=== PATIENT | male | born 1985 | race Caucasian/White ===

== ENCOUNTER 2016-02-09 20:00 | Emergency (ER) | payer SELFPAY ==
[~2016-02-09] VITALS: Ht 182.9 cm; Wt 105.2 kg
[~2016-02-09 20:00] MED LIST: IBUP800T23 PO
[2016-02-09 20:09] VITALS: BP 143/82; PULSE 101; RESP 18; TEMP 98.9; O2SAT 99
--- NOTE | 2016-02-09 22:35 | PD ---
HPI Chief Complaint: Abdominal Pain Time Seen by Provider: 21:40 Travel History International Travel<30 days: No Contact w/Intl Traveler<30days: No Traveled to known affect area: No History of Present Illness HPI The patient is a 30-year-old male that was here on the with right lower quadrant pain. At that time his CT scan was normal but his white count was elevated 17,000. He was offered admission but wanted to try it at home with Motrin. He has been taking Motrin but his pain got worse and he developed some slight amount of blood in the stool. The pain is still in the right lower quadrant. He denies any fever, nausea or vomiting. He denies any dysuria, frequency, urgency and has not noticed any blood in his urine. He does have a history of kidney stones. He still has his gallbladder and appendix. PFSH Past Medical History ADD: Yes Asthma: Yes ( A CHILD) Autoimmune Disease: No Blood Disorders: No Bipolar Disorder: Yes Cardiovascular Problems: Yes (HEART MURMUR) Chemotherapy: No Diabetes: No Diminished Hearing: No Endocrine: No Genitourinary: No Immune Disorder: No Musculoskeletal: No Neurologic: No Psychiatric: Yes Reproductive: No Respiratory: Yes (ASTHMA) Integumentary: Yes (PT STATES HE HAS HX OF STAPH POST SPIDER BITE IN R ELBOW) Immunizations Current: No Radiation Therapy: No Sickle Cell Disease: No Influenza Vaccination: No PNEUMOCCOCAL Vaccine (Year): 1 Past Surgical History Abdominal Surgery: Yes (UPPER AND LOWER ENDOSCOPY) AICD: No Arteriovenous Shunt: No Cardiac Surgery: No Ear Surgery: No Endocrine Surgery: No Eye Surgery: No Genitourinary Surgery: No Gynecologic Surgery: No Insulin Pump: No Joint Replacement: No Neurologic Surgery: No Oral Surgery: No Pacemaker: No Thoracic Surgery: No Other Surgery: Yes (MRSA INFECTION LT ELBOW, L MIDDLE FINGER) Social History Alcohol Use: Yes (RARE) Tobacco Use: No (VAPOR SINCE AUGUST 2015) Substance Use: Yes (Marijuana occ.) Allergies-Medications (Allergen,Severity, Reaction): Coded Allergies: Penicillin (Verified Allergy, Severe, Anaphylaxis, 02/09/16) *MDRO Multi-Drug Resistant Organism (Verified Adverse Reaction, Unknown, ) MRSA (wound) - 03/2007 & 07/2007 *MRSA PCR screen negative 03/29/15 & 03/31/15* Per Infection Control, pt does not require isolation fo MRSA prior to 03/31/2015. Reported Meds & Prescriptions Reported Meds & Active Scripts Active No Active Prescriptions or Reported Medications Review of Systems Except as stated in HPI: all other systems reviewed are Neg Physical Exam Narrative GENERAL: The patient is alert, oriented 3 in moderate amount of distress with his right lower quadrant pain. His vital signs show heart rate of 101 and blood pressure 143/82 but are otherwise normal. SKIN: Warm and dry. HEAD: Atraumatic. Normocephalic. EYES: Pupils equal and round. No scleral icterus. No injection or drainage. ENT: No nasal bleeding or discharge. Mucous membranes pink and moist. NECK: Trachea midline. No JVD. CARDIOVASCULAR: Regular rate and rhythm. No murmur appreciated. RESPIRATORY: No accessory muscle use. Clear to auscultation. Breath sounds equal bilaterally. GASTROINTESTINAL: Abdomen soft, with tenderness to direct palpation in the right lower quadrant, nondistended. Hepatic and splenic margins not palpable. No guarding or rebound is present. MUSCULOSKELETAL: No obvious deformities. No clubbing. No cyanosis. No edema. NEUROLOGICAL: Awake and alert. No obvious cranial nerve deficits. Motor grossly within normal limits. Normal speech. PSYCHIATRIC: Appropriate mood and affect; insight and judgment normal. RECTAL EXAM: No masses or tenderness, stool is brown but guaiac positive. Data Data Last Documented VS Vital Signs Date Time Temp Pulse Resp B/P Pulse Ox O2 Delivery O2 Flow Rate FiO2 02/09/16 23:12 18 02/09/16 22:50 97 Room Air 02/09/16 22:45 69 134/74 02/09/16 20:09 98.9 Orders Complete Blood Count With Diff (02/09/16 22:35) Comprehensive Metabolic Panel (02/09/16 22:35) Lipase (02/09/16 22:35) Urinalysis - C+S If Indicated (02/09/16 22:35) Ct Abd/Pel W Iv Contrast(Rout) (02/09/16 22:35) Iv Access Insert/Monitor (02/09/16 22:35) Ecg Monitoring (02/09/16 22:35) Oximetry (02/09/16 22:35) Sodium Chloride 0.9% Flush (Ns Flush) (02/09/16 22:45) Ondansetron Inj (Zofran Inj) (02/09/16 22:45) Hydromorphone Pf Inj (Dilaudid Pf Inj) (02/09/16 22:45) Sodium Chlor 0.9% 1000 Ml Inj (Ns 1000 M (02/09/16 22:45) Iohexol 300 Inj (Rad Ct) (Omnipaque 300 (02/09/16 23:41) Ondansetron 4 Mg Vial (Zofran 4 Mg Vial) (02/10/16 00:00) Hydromorphone Pf 1 Mg Vial (Dilaudid Pf (02/10/16 00:00) Labs Laboratory Tests Test 02/09/16 22:45 White Blood Count 6.7 TH/MM3 Red Blood Count 5.22 MIL/MM3 Hemoglobin 15.0 GM/DL Hematocrit 44.2 % Mean Corpuscular Volume 84.6 FL Mean Corpuscular Hemoglobin 28.8 PG Mean Corpuscular Hemoglobin 34.0 % Concent Red Cell Distribution Width 12.1 % Platelet Count 217 TH/MM3 Mean Platelet Volume 8.5 FL Neutrophils (%) (Auto) 47.4 % Lymphocytes (%) (Auto) 36.6 % Monocytes (%) (Auto) 11.5 % Eosinophils (%) (Auto) 3.9 % Basophils (%) (Auto) 0.6 % Neutrophils # (Auto) 3.2 TH/MM3 Lymphocytes # (Auto) 2.4 TH/MM3 Monocytes # (Auto) 0.8 TH/MM3 Eosinophils # (Auto) 0.3 TH/MM3 Basophils # (Auto) 0.0 TH/MM3 CBC Comment DIFF FINAL Differential Comment Urine Color YELLOW Urine Turbidity CLEAR Urine pH 6.0 Urine Specific [place] 1.030 Urine Protein NEG mg/dL Urine Glucose (UA) NEG mg/dL Urine Ketones NEG mg/dL Urine Occult Blood TRACE Urine Nitrite NEG Urine Bilirubin NEG Urine Leukocyte Esterase NEG Urine RBC 0-3 /hpf Urine WBC 0-2 /hpf Urine Squamous Epithelial 0-5 /hpf Cells Urine Bacteria NONE /hpf Microscopic Urinalysis Comment CULT NOT INDICATED Sodium Level 141 MEQ/L Potassium Level 3.5 MEQ/L Chloride Level 105 MEQ/L Carbon Dioxide Level 28.1 MEQ/L Anion Gap 8 MEQ/L Blood Urea Nitrogen 15 MG/DL Creatinine 0.78 MG/DL Estimat Glomerular Filtration 119 ML/MIN Rate Random Glucose 88 MG/DL Calcium Level 8.8 MG/DL Total Bilirubin 0.4 MG/DL Aspartate Amino Transf 45 U/L (AST/SGOT) Alanine Aminotransferase 92 U/L (ALT/SGPT) Alkaline Phosphatase 103 U/L Total Protein 8.0 GM/DL Albumin 3.9 GM/DL Lipase 112 U/L MDM Medical Decision Making Medical Screen Exam Complete: Yes Emergency Medical Condition: Yes Medical Record Reviewed: Yes Interpretation(s) The urine shows trace occult blood and specific gravity of 1.030 but is otherwise normal and culture is not indicated. The CBC is normal. The complete metabolic profile is normal and the lipase is normal. The chest x-ray is normal. Differential Diagnosis Viral upper respiratory infection, pneumonia, bronchitis, dehydration, electrolyte disorder, hypo-/hyperglycemia, sepsis Narrative Course The patient appears to have a viral upper respiratory infection. He should drink increased liquids and take Motrin and Tylenol and follow-up with a primary care physician next week. If worse, he can return to the emergency department. Diagnosis Primary Impression: Viral upper respiratory infection Additional Instructions: As we discussed, this is a virus and antibiotics do not work for a virus. If you have sudden increase in fever, shortness of breath or chest pain you can return for reevaluation. Otherwise follow-up with a primary care physician next week. Rest, Tylenol, Motrin and increase liquids are the treatment. Med/Other Pt SpecificInfo: No Change to Meds Scripts No Active Prescriptions or Reported Meds Disposition: 01 DISCHARGE HOME Condition: Stable Brandon Nunez MD Feb 09, 2016 22:35
[2016-02-09] MEDS: SODIUM CHLOR 0.9% 1000 ML INJ 1,000 ML IV SCH ×2 (22:41→23:47)
[2016-02-09 22:45] VITALS: BP 134/74; PULSE 69; RESP 18; O2SAT 98
[2016-02-09] MEDS ORDERED: ONDANSETRON HCL 4 MG/2 ML VIAL IV ONE (22:45)
[2016-02-09] MEDS ORDERED: SODIUM CHLORIDE 0.9% FLUSH 5 ML FLUSH IVF PRN (22:45)
[2016-02-09] MEDS ORDERED: HYDROmorphone HCL PF 1 MG/ML VIAL IVP ONE (22:45)
[2016-02-09 22:50] VITALS: O2SAT 97
[2016-02-09 22:55] LABS: BLOOD, URINE TRACE (NEG); GLUCOSE,URINE NEG (NEG); KETONE, URINE NEG (NEG); NITRITE,URINE NEG (NEG)
[2016-02-09 22:57] LABS: AUTOMATED NEUTROPHIL # 3.2 TH/MM3 (1.8-7.7); BASOPHIL % 0.6 % (0.0-2.0); EOSINOPHIL # 0.3 TH/MM3 (0-0.4); EOSINOPHIL % 3.9 % (0.0-4.0); HEMATOCRIT 44.2 % (39.0-51.0); HEMO FLAGS DIFF FINAL; LYMPH % 36.6 % (9.0-44.0); LYMPHOCYTE # 2.4 TH/MM3 (1.0-4.8); MEAN CELL VOLUME 84.6 FL (80.0-100.0); MEAN CORPUSCULAR HEMOGLOBIN 28.8 PG (27.0-34.0); MONO % 11.5 % (0.0-8.0); NEUT % 47.4 % (16.0-70.0); PLATELET COUNT 217 TH/MM3 (150-450); RED BLOOD COUNT 5.22 MIL/MM3 (4.50-5.90); RED CELL DISTRIBUTION WIDTH 12.1 % (11.6-17.2); WHITE BLOOD COUNT 6.7 TH/MM3 (4.0-11.0)
[2016-02-09 23:03] LABS: CHLORIDE 105 MEQ/L (98-107); COMMENT (UR) CULT NOT INDICATED; CULTURE IF INDICATED CULT NOT INDICATED; POTASSIUM 3.5 MEQ/L (3.5-5.1); RBC, URINE 0-3 /hpf (0-3); SODIUM (NA) 141 MEQ/L (136-145); SQUAMOUS EPITHELIAL CELL URINE 0-5 /hpf (0-5); URINE COLOR YELLOW (YELLW/STRAW); WBC, URINE 0-2 /hpf (0-5)
[2016-02-09 23:07] LABS: ANION GAP 8 MEQ/L (5-15); BICARBONATE 28.1 MEQ/L (21.0-32.0); BLOOD UREA NITROGEN 15 MG/DL (7-18)
[2016-02-09 23:10] LABS: ALT (GPT) 92 U/L (12-78); AST (GOT) 45 U/L (15-37); GLOMERULAR FILTRATION RATE 119 ML/MIN (>89)
[2016-02-09 23:11] LABS: TOTAL BILIRUBIN ADULT 0.4 MG/DL (0.2-1.0)
[2016-02-09 23:13] LABS: ALKALINE PHOSPHATASE 103 U/L (45-117)
[2016-02-09] MEDS ORDERED: IOHEXOL 300 MG/ML 100 ML BTL (for Rad CT) IV ONE (23:41)
[2016-02-09 23:50] VITALS: BP 126/67; PULSE 69; RESP 17; O2SAT 97
--- NOTE | 2016-02-09 23:58 | RADHPO ---
EXAM DATE/TIME: 02/09/2016 23:37 [facility] COMPARISON: CT ABDOMEN & PELVIS W CONTRAST, February 03, 2016, 1:16. INDICATIONS : Right lower quadrant pain for a week now with blood in stool. IV CONTRAST: 100 cc Omnipaque 300 (iohexol) IV ORAL CONTRAST: No oral contrast ingested. RADIATION DOSE: 16.91 CTDIvol (mGy) MEDICAL HISTORY : Ulcerative colitis. SURGICAL HISTORY : None. ENCOUNTER: Initial ACUITY: 1 week PAIN SCALE: 8/10 LOCATION: Right lower quadrant abdomen TECHNIQUE: Volumetric scanning of the abdomen and pelvis was performed. Using automated exposure control and ad justment of the mA and/or kV according to patient size, radiation dose was kept as low as reasonably achievable to obtain optimal diagnostic quality images. FINDINGS: LOWER LUNGS: The visualized lower lungs are clear. LIVER: The liver is diffusely low in attenuation without lesion. There is no dilation of the biliary tree. No calcified gallstones. SPLEEN: Normal size without lesion. PANCREAS: Within normal limits. KIDNEYS: Normal in size and shape. There is no mass, stone or hydronephrosis. ADRENAL GLANDS: Within normal limits. VASCULAR: There is no aortic aneurysm. BOWEL/MESENTERY: The stomach, small bowel, and colon demonstrate no acute abnormality. There is no free intraperitone al air or fluid. ABDOMINAL WALL: Within normal limits. RETROPERITONEUM: There is no lymphadenopathy. BLADDER: No wall thickening or mass. REPRODUCTIVE: Within normal limits. INGUINAL: There is no lymphadenopathy or hernia. MUSCULOSKELETAL: Within normal limits for patient age. CONCLUSION: 1. Hepatic steatosis. 2. No acute abnormality. Andrey Bullard Jr., MD on February 09, 2016 at 23:54 Board Certified Radiologist. This report was verified electronically.
[2016-02-10] MEDS ORDERED: HYDROmorphone HCL PF 1 MG/ML VIAL IVP ONE
[2016-02-10] MEDS ORDERED: ONDANSETRON HCL 4 MG/2 ML VIAL IV ONE
[2016-02-10 00:29] VITALS: RESP 18
[2016-02-10] MEDS ORDERED: HYDR-3534 PO (00:32)
--- NOTE | 2016-02-10 00:32 | PD ---
HPI Chief Complaint: Abdominal Pain Time Seen by Provider: 21:40 Travel History International Travel<30 days: No Contact w/Intl Traveler<30days: No Traveled to known affect area: No History of Present Illness HPI The patient is a 30-year-old male that was here on the with right lower quadrant pain. At that time his CT scan was normal but his white count was elevated at 17,000. He was offered admission but he wanted to try it at home with Motrin. He's been taking Motrin for pain but his pain got worse and he developed a slight amount of blood in the stool. The pain is in the right lower quadrant. He denies any nausea, fever, vomiting, dysuria, frequency or urgency and has not noted any blood in his urine lately. He does have a history kidney stones. He still has his gallbladder and appendix. He has never undergone endoscopy. He did not follow-up with a senior quality manager as recommended, he did not follow-up with a primary care physician as recommended. PFSH Past Medical History ADD: Yes Asthma: Yes ( A CHILD) Autoimmune Disease: No Blood Disorders: No Bipolar Disorder: Yes Cardiovascular Problems: Yes (HEART MURMUR) Chemotherapy: No Diabetes: No Diminished Hearing: No Endocrine: No Genitourinary: No Immune Disorder: No Musculoskeletal: No Neurologic: No Psychiatric: Yes Reproductive: No Respiratory: Yes (ASTHMA) Integumentary: Yes (PT STATES HE HAS HX OF STAPH POST SPIDER BITE IN R ELBOW) Immunizations Current: No Radiation Therapy: No Sickle Cell Disease: No Influenza Vaccination: No PNEUMOCCOCAL Vaccine (Year): 1 Past Surgical History Abdominal Surgery: Yes (UPPER AND LOWER ENDOSCOPY) AICD: No Arteriovenous Shunt: No Cardiac Surgery: No Ear Surgery: No Endocrine Surgery: No Eye Surgery: No Genitourinary Surgery: No Gynecologic Surgery: No Insulin Pump: No Joint Replacement: No Neurologic Surgery: No Oral Surgery: No Pacemaker: No Thoracic Surgery: No Other Surgery: Yes (MRSA INFECTION LT ELBOW, L MIDDLE FINGER) Social History Alcohol Use: Yes (RARE) Tobacco Use: No (VAPOR SINCE AUGUST 2015) Substance Use: Yes (Marijuana occ.) Allergies-Medications (Allergen,Severity, Reaction): Coded Allergies: Penicillin (Verified Allergy, Severe, Anaphylaxis, 02/09/16) *MDRO Multi-Drug Resistant Organism (Verified Adverse Reaction, Unknown, ) MRSA (wound) - 03/2007 & 07/2007 *MRSA PCR screen negative 03/29/15 & 03/31/15* Per Infection Control, pt does not require isolation fo MRSA prior to 03/31/2015. Reported Meds & Prescriptions Reported Meds & Active Scripts Active No Active Prescriptions or Reported Medications Review of Systems Except as stated in HPI: all other systems reviewed are Neg Physical Exam Narrative GENERAL: The patient is alert, oriented 3 in moderate amount of distress with his right lower quadrant pain. His vital signs show heart rate of 101 and blood pressure is 143/82 but the vital signs are otherwise normal. SKIN: Warm and dry. No skin rashes present. HEAD: Atraumatic. Normocephalic. EYES: Pupils equal and round. No scleral icterus. No injection or drainage. ENT: No nasal bleeding or discharge. Mucous membranes pink and moist. NECK: Trachea midline. No JVD. CARDIOVASCULAR: Regular rate and rhythm. No murmur appreciated. RESPIRATORY: No accessory muscle use. Clear to auscultation. Breath sounds equal bilaterally. GASTROINTESTINAL: Abdomen soft, non-tender, nondistended. Hepatic and splenic margins not palpable. MUSCULOSKELETAL: No obvious deformities. No clubbing. No cyanosis. No edema. NEUROLOGICAL: Awake and alert. No obvious cranial nerve deficits. Motor grossly within normal limits. Normal speech. PSYCHIATRIC: Appropriate mood and affect; insight and judgment normal. Rectal exam: No tenderness or masses but the stool is brown and trace guaiac positive. Data Data Last Documented VS Vital Signs Date Time Temp Pulse Resp B/P Pulse Ox O2 Delivery O2 Flow Rate FiO2 02/09/16 23:50 69 17 126/67 97 Room Air 02/09/16 20:09 98.9 Orders Complete Blood Count With Diff (02/09/16 22:35) Comprehensive Metabolic Panel (02/09/16 22:35) Lipase (02/09/16 22:35) Urinalysis - C+S If Indicated (02/09/16 22:35) Ct Abd/Pel W Iv Contrast(Rout) (02/09/16 22:35) Iv Access Insert/Monitor (02/09/16 22:35) Ecg Monitoring (02/09/16 22:35) Oximetry (02/09/16 22:35) Sodium Chloride 0.9% Flush (Ns Flush) (02/09/16 22:45) Ondansetron Inj (Zofran Inj) (02/09/16 22:45) Hydromorphone Pf Inj (Dilaudid Pf Inj) (02/09/16 22:45) Sodium Chlor 0.9% 1000 Ml Inj (Ns 1000 M (02/09/16 22:45) Iohexol 300 Inj (Rad Ct) (Omnipaque 300 (02/09/16 23:41) Ondansetron Inj (Zofran Inj) (02/10/16 00:00) Hydromorphone Pf Inj (Dilaudid Pf Inj) (02/10/16 00:00) Labs Laboratory Tests Test 02/09/16 22:45 White Blood Count 6.7 TH/MM3 Red Blood Count 5.22 MIL/MM3 Hemoglobin 15.0 GM/DL Hematocrit 44.2 % Mean Corpuscular Volume 84.6 FL Mean Corpuscular Hemoglobin 28.8 PG Mean Corpuscular Hemoglobin 34.0 % Concent Red Cell Distribution Width 12.1 % Platelet Count 217 TH/MM3 Mean Platelet Volume 8.5 FL Neutrophils (%) (Auto) 47.4 % Lymphocytes (%) (Auto) 36.6 % Monocytes (%) (Auto) 11.5 % Eosinophils (%) (Auto) 3.9 % Basophils (%) (Auto) 0.6 % Neutrophils # (Auto) 3.2 TH/MM3 Lymphocytes # (Auto) 2.4 TH/MM3 Monocytes # (Auto) 0.8 TH/MM3 Eosinophils # (Auto) 0.3 TH/MM3 Basophils # (Auto) 0.0 TH/MM3 CBC Comment DIFF FINAL Differential Comment Urine Color YELLOW Urine Turbidity CLEAR Urine pH 6.0 Urine Specific [place] 1.030 Urine Protein NEG mg/dL Urine Glucose (UA) NEG mg/dL Urine Ketones NEG mg/dL Urine Occult Blood TRACE Urine Nitrite NEG Urine Bilirubin NEG Urine Leukocyte Esterase NEG Urine RBC 0-3 /hpf Urine WBC 0-2 /hpf Urine Squamous Epithelial 0-5 /hpf Cells Urine Bacteria NONE /hpf Microscopic Urinalysis Comment CULT NOT INDICATED Sodium Level 141 MEQ/L Potassium Level 3.5 MEQ/L Chloride Level 105 MEQ/L Carbon Dioxide Level 28.1 MEQ/L Anion Gap 8 MEQ/L Blood Urea Nitrogen 15 MG/DL Creatinine 0.78 MG/DL Estimat Glomerular Filtration 119 ML/MIN Rate Random Glucose 88 MG/DL Calcium Level 8.8 MG/DL Total Bilirubin 0.4 MG/DL Aspartate Amino Transf 45 U/L (AST/SGOT) Alanine Aminotransferase 92 U/L (ALT/SGPT) Alkaline Phosphatase 103 U/L Total Protein 8.0 GM/DL Albumin 3.9 GM/DL Lipase 112 U/L MDM Medical Decision Making Medical Screen Exam Complete: Yes Emergency Medical Condition: Yes Medical Record Reviewed: Yes Interpretation(s) The CBC, urinalysis, complete metabolic profile and lipase are normal. The chest x-ray is normal. The CT scan is normal. Differential Diagnosis Colitis, gastritis, degenerating polyp, Meckel's diverticulum, other lesion in the colon Narrative Course The patient did not follow-up with anyone but return to the emergency department instead. We have gone as far as we can in the emergency department, the patient will likely need endoscopy. He should talk to piano case maker at 9 AM to find out how he can get a senior quality manager to follow-up. He has no insurance. Further emergency department visits seem unlikely to help this patient. Plan: The patient will be given Lortab 5 #20 and follow-up with gastroenterology. Impression: Right lower quadrant pain/lower GI bleed etiology undetermined Diagnosis Primary Impression: Abdominal pain of unknown etiology Additional Impression: Lower GI bleed Referrals: NO PRIMARY CARE PHYSICIAN (PCP) Primary Care Physician Patient Instructions: General Instructions, Acetaminophen (By mouth), Ibuprofen (By mouth), Cold Symptoms (ED) Departure Forms: Tests/Procedures Additional Instructions: As we discussed, this is a virus and antibiotics do not work for a virus. If you have sudden increase in fever, shortness of breath or chest pain you can return for reevaluation. Otherwise follow-up with a primary care physician next week. Rest, Tylenol, Motrin and increase liquids are the treatment. Med/Other Pt SpecificInfo: Prescription(s) given Scripts Hydrocodone-Acetaminophen (Lortab)7.5-325 Mg Tab1 Tab PO Q6H PRN (PAIN) #20 TAB Ref 0 Prov:Brandon Nunez MD 02/10/16 Disposition: 01 DISCHARGE HOME Condition: Stable Brandon Nunez MD Feb 10, 2016 00:32
[2016-02-10 00:51] VITALS: BP 133/74
== END 2016-02-10 00:25 | disposition home or self-care (01) ==
LOC: PHED 20:00
DX: J06.9 Acute upper respiratory infection, unspecified (principal); K76.0 Fatty (change of) liver, not elsewhere classified; R01.1 Cardiac murmur, unspecified
CPT/HCPCS: 74177; 80053; 81001; 83690; 85025; 96361; 96374; 96375; 96376; 99284; J1170; J2405; J7030; Q9967

== ENCOUNTER 2016-06-08 23:25 | Emergency (ER) | payer OTHER ==
[~2016-06-08] VITALS: Ht 182.9 cm; Wt 120.0 kg
[~2016-06-08 23:25] MED LIST changes: +HYDR-3534 PO; -IBUP800T23 PO
[2016-06-08 23:28] VITALS: BP 148/87; PULSE 104; RESP 20; TEMP 97.8; O2SAT 97
[2016-06-08] MEDS ORDERED: PRED50 PO (23:55)
--- NOTE | 2016-06-08 23:56 | PD ---
HPI Chief Complaint: Allergic/Adverse Reaction Time Seen by Provider: 23:48 Travel History International Travel<30 days: No Contact w/Intl Traveler<30days: No Traveled to known affect area: No History of Present Illness HPI The patient is a 31-year-old male that was hooking up a trailer and was lying on his back on the ground at night near [place] and he got stung by multiple fire ants. He does not want to call this workman's comp even though it was workman's comp. He is concerned about his job, he has a new job that he wants to keep. He denies any shortness of breath or wheezing. The patient took Benadryl tablets, 2 every 4 hours initially but now will go back to one tablet every 6 hours. He is currently on-call at work now. PFSH Past Medical History ADD: Yes Asthma: Yes ( A CHILD) Autoimmune Disease: No Blood Disorders: No Bipolar Disorder: Yes Cardiovascular Problems: Yes (HEART MURMUR) Chemotherapy: No Diabetes: No Diminished Hearing: No Endocrine: No Genitourinary: No Immune Disorder: No Musculoskeletal: No Neurologic: No Psychiatric: Yes Reproductive: No Respiratory: Yes (ASTHMA) Integumentary: Yes (PT STATES HE HAS HX OF STAPH POST SPIDER BITE IN R ELBOW) Immunizations Current: Yes Radiation Therapy: No Sickle Cell Disease: No Tetanus Vaccination: < 5 Years Influenza Vaccination: No PNEUMOCCOCAL Vaccine (Year): 1 Past Surgical History Abdominal Surgery: Yes (UPPER AND LOWER ENDOSCOPY) AICD: No Arteriovenous Shunt: No Cardiac Surgery: No Ear Surgery: No Endocrine Surgery: No Eye Surgery: No Genitourinary Surgery: No Gynecologic Surgery: No Insulin Pump: No Joint Replacement: No Neurologic Surgery: No Oral Surgery: No Pacemaker: No Thoracic Surgery: No Other Surgery: Yes (MRSA INFECTION LT ELBOW, L MIDDLE FINGER) Social History Alcohol Use: Yes (RARE) Tobacco Use: No (VAPOR SINCE AUGUST 2015) Substance Use: Yes (Marijuana occ.) Allergies-Medications (Allergen,Severity, Reaction): Coded Allergies: Penicillin (Verified Allergy, Severe, Anaphylaxis, 06/08/16) *MDRO Multi-Drug Resistant Organism (Verified Adverse Reaction, Unknown, ) MRSA (wound) - 03/2007 & 07/2007 *MRSA PCR screen negative 03/29/15 & 03/31/15* Per Infection Control, pt does not require isolation fo MRSA prior to 03/31/2015. Reported Meds & Prescriptions Reported Meds & Active Scripts Active Review of Systems Except as stated in HPI: all other systems reviewed are Neg Physical Exam Narrative GENERAL: Well-nourished, well-developed patient. SKIN: Focused skin assessment warm/dry. Multiple fire ants are present, approximately 50 bites are present on the back and left shoulder. No these appear infected. These appear his typical fire ant bites with red base and a small vesicle in the center, some of been scratched off. HEAD: Normocephalic. EYES: No scleral icterus. No injection or drainage. NECK: Supple, trachea midline. No JVD or lymphadenopathy. CARDIOVASCULAR: Regular rate and rhythm without murmurs, gallops, or rubs. RESPIRATORY: Breath sounds equal bilaterally. No accessory muscle use. The lungs are clear and no wheezes are heard. GASTROINTESTINAL: Abdomen soft, non-tender, nondistended. MUSCULOSKELETAL: No cyanosis, or edema. BACK: Nontender without obvious deformity. No CVA tenderness. Data Data Last Documented VS Vital Signs Date Time Temp Pulse Resp B/P Pulse Ox O2 Delivery O2 Flow Rate FiO2 06/08/16 23:43 104 18 96 Room Air 06/08/16 23:28 97.8 148/87 MDM Medical Decision Making Medical Screen Exam Complete: Yes Emergency Medical Condition: Yes Medical Record Reviewed: Yes Differential Diagnosis Fire ant bites, other insect bites, allergic reaction, cellulitis Narrative Course The patient has typical fire ant bites which are not infected. He should use a flashlight and check the ground before he lies on the ground in the future. Plan: The patient will be given prednisone 50 mg daily for 4 days and he is given 80 mg by mouth now. Diagnosis Primary Impression: Fire ant bite Additional Instructions: As we discussed, you can drop the Benadryl down to 1 tablet (25 mg) every 6 hours. Also, we discussed checking the ground with a flashlight before you lie down to look up the trailers. Med/Other Pt SpecificInfo: Prescription(s) given Scripts Prednisone 50 Mg Tab50 Mg PO DAILY 4 Days Ref 0 Prov:Brandon Nunez MD 06/08/16 Disposition: 01 DISCHARGE HOME Condition: Stable Brandon Nunez MD June 08, 2016 23:56
[2016-06-09] MEDS ORDERED: predniSONE 20 MG TAB PO ONE
== END 2016-06-09 00:07 | disposition home or self-care (01) ==
LOC: PHED 23:25
DX: T63.421A Toxic effect of venom of ants, accidental (unintentional), initial encounter (principal); Y92.89 Other specified places as the place of occurrence of the external cause; Y93.89 Activity, other specified; Y99.0 Civilian activity done for income or pay
CPT/HCPCS: 99282; J7512

== ENCOUNTER 2016-12-31 17:20 | Emergency (ER) | payer SELFPAY ==
[~2016-12-31] VITALS: Ht 182.9 cm; Wt 121.0 kg
[~2016-12-31 17:20] MED LIST changes: -HYDR-3534 PO; +PRED50 PO
[2016-12-31 17:36] VITALS: BP 153/96; PULSE 108; RESP 20; TEMP 97.6; O2SAT 97
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
[2016-12-31] MEDS ORDERED: ZITH250T PO (19:05)
[2016-12-31] MEDS ORDERED: CHERSYP2 PO (19:05)
== END 2016-12-31 19:08 | disposition home or self-care (01) ==
LOC: PHEFT 17:20
DX: J02.9 Acute pharyngitis, unspecified (principal); F17.290 Nicotine dependence, other tobacco product, uncomplicated
CPT/HCPCS: 87804; 99283

== ENCOUNTER 2017-04-18 06:48 | Emergency (ER) | payer SELFPAY ==
[~2017-04-18] VITALS: Ht 182.9 cm; Wt 125.0 kg
[~2017-04-18 06:48] MED LIST changes: +CHERSYP2 PO; -PRED50 PO; +ZITH250T PO
[2017-04-18 07:09] VITALS: BP 133/79; PULSE 121; RESP 20; TEMP 98.8; O2SAT 96
[2017-04-18] MEDS ORDERED: MEDI220T PO (07:14)
[2017-04-18] MEDS ORDERED: CYCL10TA PO (07:14)
[2017-04-18] MEDS ORDERED: SODIUM CHLOR 0.9% 1000 ML INJ 1,000 ML IV ONE ×2 (07:15→07:30)
[2017-04-18] MEDS ORDERED: SODIUM CHLORIDE 0.9% FLUSH 10 ML FLUSH IVF PRN (07:15)
[2017-04-18] MEDS ORDERED: ONDANSETRON HCL 4 MG/2 ML VIAL IV PUSH ONE (07:15)
--- NOTE | 2017-04-18 07:41 | PD ---
HPI . Diarrhea Chief Complaint: GI Complaint Time Seen by Provider: 07:08 Travel History International Travel<30 days: No Contact w/Intl Traveler<30days: No Traveled to known affect area: No History of Present Illness HPI Patient presents with a chief complaint of diarrhea. He has subsequently developed vomiting. He states that it all started yesterday afternoon after he ate some jalapeno crackers for lunch. Shortly thereafter, he developed diarrhea. He states his diarrhea has been almost continuous since that time. He has been nauseous as well but did not start vomiting until this morning. In addition, he states that he suffered and abdominal muscle strain in the recent past when he fell on vacation. He is currently taken Naprosyn and a muscle relaxant for the sore abdominal muscles. He states that the constant diarrhea seems to have exacerbated the sore muscles. He is also complaining of pain in the binu-ankle area because of the frequent diarrhea. He rates his pain at 9/ 10. Pain is exacerbated by bowel movements. His abdominal pain is exacerbated by vomiting. He has not had any associated fevers or chills. He denies any urinary tract symptoms. PFSH Past Medical History ADD: Yes Asthma: Yes ( A CHILD) Autoimmune Disease: No Blood Disorders: No Bipolar Disorder: Yes Cardiovascular Problems: Yes (HEART MURMUR) Chemotherapy: No Diabetes: No Diminished Hearing: No Endocrine: No Gastrointestinal Disorders: No Genitourinary: No Immune Disorder: No Musculoskeletal: No Neurologic: No Psychiatric: Yes Reproductive: No Respiratory: Yes (ASTHMA) Integumentary: Yes (PT STATES HE HAS HX OF STAPH POST SPIDER BITE IN R ELBOW) Immunizations Current: Yes Radiation Therapy: No Sickle Cell Disease: No PNEUMOCCOCAL Vaccine (Year): 1 Past Surgical History Abdominal Surgery: Yes (UPPER AND LOWER ENDOSCOPY) AICD: No Arteriovenous Shunt: No Cardiac Surgery: No Ear Surgery: No Endocrine Surgery: No Eye Surgery: No Genitourinary Surgery: No Gynecologic Surgery: No Insulin Pump: No Joint Replacement: No Neurologic Surgery: No Oral Surgery: No Pacemaker: No Thoracic Surgery: No Other Surgery: Yes (MRSA INFECTION LT ELBOW, L MIDDLE FINGER) Social History Alcohol Use: Yes (RARE) Tobacco Use: No (VAPOR SINCE AUGUST 2015) Substance Use: Yes (Marijuana occ.) Allergies-Medications (Allergen,Severity, Reaction): Coded Allergies: penicillin G (Unverified Allergy, Severe, Anaphylaxis, 04/18/17) *MDRO Multi-Drug Resistant Organism (Verified Adverse Reaction, Unknown, ) MRSA (wound) - 03/2007 & 07/2007 *MRSA PCR screen negative 03/29/15 & 03/31/15* Per Infection Control, pt does not require isolation fo MRSA prior to 03/31/2015. Reported Meds & Prescriptions Reported Meds & Active Scripts Active Reported Naproxen Sodium 220 Mg Tab 440 Mg PO BID PRN Flexeril (Cyclobenzaprine HCl) 10 Mg Tab 10 Mg PO BID Review of Systems Except as stated in HPI: all other systems reviewed are Neg General / Constitutional: No: Fever, Chills Gastrointestinal: Positive: Nausea, Vomiting, Diarrhea, Abdominal Pain Genitourinary: No: Urgency, Frequency, Dysuria, Decreased Urinary Output Physical Exam Narrative GENERAL: Exam has actually been difficult because he has been back and forth to the bathroom since triage. SKIN: warm/dry. Normal color and turgor. HEAD: Normocephalic. Atraumatic. EYES: Pupils equal and round. No scleral icterus. No injection or drainage. ENT: No nasal bleeding or discharge. Mucous membranes pink and slightly dry. NECK: Trachea midline. Full range of motion without pain.. CARDIOVASCULAR: Regular rhythm. Sinus tachycardia RESPIRATORY: No accessory muscle use. Clear to auscultation. Breath sounds equal bilaterally. GASTROINTESTINAL: Abdomen soft. Lower abdominal tenderness. Bowel sounds present. Nondistended. MUSCULOSKELETAL: No obvious deformities. NEUROLOGICAL: Awake and alert. No obvious cranial nerve deficits. Motor grossly within normal limits. Normal speech. PSYCHIATRIC: Appropriate mood and affect; insight and judgment normal. Data Data Last Documented VS Vital Signs Date Time Temp Pulse Resp B/P (MAP) Pulse Ox O2 Delivery O2 Flow Rate FiO2 04/18/17 07:10 20 04/18/17 07:09 98.8 121 133/79 (97) 96 Orders Orders Iv Access Insert/Monitor (04/18/17 07:15) Ondansetron Inj (Zofran Inj) (04/18/17 07:15) Sodium Chlor 0.9% 1000 Ml Inj (Ns 1000 M (04/18/17 07:15) Sodium Chloride 0.9% Flush (Ns Flush) (04/18/17 07:15) Sodium Chlor 0.9% 1000 Ml Inj (Ns 1000 M (04/18/17 07:30) Morphine Inj (Morphine Inj) (04/18/17 07:45) MDM Medical Decision Making Medical Screen Exam Complete: Yes Emergency Medical Condition: Yes Differential Diagnosis Differential diagnosis of diarrhea includes but is not limited to early enteritis, bacterial enteritis, antibiotic induced diarrhea, irritable bowel syndrome Narrative Course This patient presents with the acute onset of diarrhea yesterday afternoon. He reports numerous episodes of diarrhea prior to presentation to us this morning. He has subsequently developed vomiting. He will be treated initially with 2 L of fluid and IV Zofran. His abdomen is pretty sore. That will be treated with morphine. He will be reassessed following this treatment. 8:45 AM Patient reports that he feels much better. Diagnosis Primary Impression: Gastroenteritis Patient Instructions: Gastroenteritis (DC), General Instructions Med/Other Pt SpecificInfo: Prescription(s) given Scripts Ondansetron Odt (Zofran Odt) 4 Mg Tab 4 MG SL Q6HR Y for Nausea/Vomiting, #10 TAB 0 Refills Prov: Sherita Carter MD 04/18/17 Disposition: 01 DISCHARGE HOME Condition: Stable Sherita Carter MD Apr 18, 2017 07:41
[2017-04-18] MEDS ORDERED: MORPHINE SULFATE 4 MG/ML INJ IV ONE (07:45)
[2017-04-18] MEDS ORDERED: ZOFR4TAB3 SL (08:46)
[2017-04-18 09:01] VITALS: BP 112/60
== END 2017-04-18 09:03 | disposition home or self-care (01) ==
LOC: PHED 06:48
DX: K52.9 Noninfective gastroenteritis and colitis, unspecified (principal); F12.90 Cannabis use, unspecified, uncomplicated
CPT/HCPCS: 96361; 96374; 96375; 99284; J2270; J2405; J7030

== ENCOUNTER 2017-07-22 15:44 | Emergency (ER) | payer SELFPAY ==
[~2017-07-22 15:44] MED LIST changes: -CHERSYP2 PO; +CYCL10TA PO; +MEDI220T PO; -ZITH250T PO; +ZOFR4TAB3 SL
[2017-07-22 15:53] VITALS: BP 168/88; PULSE 86; RESP 20; TEMP 98; O2SAT 99
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
[2017-07-22] MEDS ORDERED: traMADol HCL 50 MG TAB PO ONE (18:00)
[2017-07-22] MEDS ORDERED: TRAM50 PO (18:00)
== END 2017-07-22 18:09 | disposition home or self-care (01) ==
LOC: PHEFT 15:44
DX: M79.641 Pain in right hand (principal); M79.642 Pain in left hand; Z88.0 Allergy status to penicillin; Y04.0XXA Assault by unarmed brawl or fight, initial encounter
CPT/HCPCS: 73130; 99283; L3808